=== PATIENT | male | born 2000 | race Caucasian/White ===

== ENCOUNTER 2024-06-27 12:01 | Emergency (ER) | payer OTHER ==
[2024-06-27] MEDS ORDERED: FAMOTIDINE 20 MG/2 ML VIAL ONE (13:23)
[2024-06-27] MEDS ORDERED: ACETAMINOPHEN TAB 325 MG TAB ONE (13:23)
[2024-06-27] MEDS ORDERED: HYOSCYAMINE ELIXIR 250 MCG/10 ML BTL ONE (13:29)
[2024-06-27] MEDS ORDERED: MAG HYDROX/AL HYDROX/SIMETH 30 ML CUP ONE (13:29)
[2024-06-27] MEDS ORDERED: LIDOCAINE VISCOUS 2% 15 ML CUP ONE (13:29)
[2024-06-27] MEDS ORDERED: SODIUM CHLORIDE 0.9% 1,000 ML BAG ONE (13:35)
[2024-06-27] MEDS ORDERED: ACETAMINOPHEN TAB 500 MG TAB ONE (16:18)
[2024-06-27] MEDS ORDERED: KETOROLAC 15 MG/ML 1 ML VIAL ONE (19:41)
--- NOTE | 2024-07-27 07:40 | US ---
Site ID [facility] Patient Bari Dill ID [id number] Age/Gender: 23Y, N/A Order # N/A Procedure US gallbladder Date 06/27/2024 4:06:00 PM INDICATION: Patient age: [age] year old; Reason for study: Abdominal pain for 2 days COMPARISON: None, please note PACS Production downtime occurred during the radiologist interpretation of these images with limited priors/reports.. TECHNIQUE: Multiple grayscale and color doppler ultrasound images of the right upper abdomen obtained utilizing transabdominal imaging. FINDINGS: PANCREAS: Limited evaluation of the pancreas secondary to bowel. LIVER: The liver demonstrates a normal echotexture. There is no evidence of dilated ducts, cystic structures , or solid mass. Measures 20.0 cm in greatest dimension. GALLBLADDER: The gallbladder demonstrates layering hyperechoic foci consistent with choleliths with posterior acou stic shadowing. No evidence of pericholecystic fluid. Gallbladder wall measures up to 4 mm in thickne ss. Contracted appearance of the gallbladder. Additional adenomyomatosis demonstrated with comet tail artifact. The common duct is obscured by overlying bowel gas. Negative sonographic Scruggs's sign. RIGHT KIDNEY: The right kidney measures 12.9 x 4.6 x 5.5 cm, without evidence of hydronephrosis, shadowing calculus , or contour deforming solid mass. Renal parenchymal echogenicity is within normal limits. IMPRESSION: 1. Contracted gallbladder with cholelithiasis. Borderline prominent wall with negative sonographic Mu rphy sign or stranding fluid. No definitive ultrasound evidence for acute cholecystitis. If there is continued clinical concern, consider further evaluation with nuclear medicine HIDA scan. 2. Gallbladder adenomyomatosis. 3. Hepatomegaly.
== END 2024-06-27 19:50 | disposition home or self-care (01) ==
LOC: EC 12:01
DX: K80.20 Calculus of gallbladder without cholecystitis without obstruction (principal)
CPT/HCPCS: 76705; 80053; 82150; 83605; 83690; 85025; 85610; 85730; 96361; 96374; 99284